=== PATIENT | female | born 1950 | race Two or more races ===

== ENCOUNTER 2020-06-20 13:43 | Outpatient (CLI) | payer OTHER | END 2020-06-20 13:44 | disposition home or self-care (01) | LOC: PPH VACUNA 13:43 | PROVIDERS: ATTEND Emergency Medicine Pediatric Emergency Medicine | DX: Z23 Encounter for immunization (principal) ==

== ENCOUNTER → 2020-07-11 08:00 | Outpatient (CLI) | payer OTHER | END | disposition home or self-care (01) | LOC: PPH VACUNA 08:00 | PROVIDERS: ATTEND Emergency Medicine Pediatric Emergency Medicine | DX: Z23 Encounter for immunization (principal) ==